=== PATIENT | male | born 1970 | race Caucasian/White ===

== ENCOUNTER 2019-12-19 06:14 | Day surgery (SDC) | payer OTHER ==
[2019-12-19] MEDS ORDERED: Lactated Ringers 1,000 ML IV SCH (06:30)
[2019-12-19] MEDS ORDERED: DIPRIVAN 200 MG/20 ML IV ONE ×2 (08:00→08:07)
--- NOTE | 2019-12-19 09:04 | OP ---
SURGERY DATE/TIME: 12/19/2019 0758 PREOPERATIVE DIAGNOSIS: Screening exam. POSTOPERATIVE DIAGNOSIS: Normal colon. Internal and external hemorrhoids are present. PROCEDURE: Colonoscopy. SURGEON: Dr. Sanchez. ANESTHESIA: MAC. Medications given by anesthesia department. HISTORY: The patient is a 49 year-old white male patient presenting now for screening colonoscopy. The patient was apprised of the risks of the procedure including the risk of perforation, phlebitis, untoward reaction to medication, bleeding and missed lesions. The patient verbalized his understanding and desired to have the procedure performed. DESCRIPTION OF PROCEDURE: The patient was given the medications by the anesthesia department. He had continuous pulse oximetry, ECG monitoring, intermittent blood pressure monitoring and tidal CO2 monitoring during the examination. He was placed in the left lateral decubitus position. A digital rectal examination was performed and revealed external and internal hemorrhoids. No other masses were felt and prostate was normal. The flexible Olympus pediatric colonoscope was used to intubate the rectum. A view of the colon was developed sequentially to the cecum. Upon insertion and withdrawal, including a retroflex view in the rectum, no other mucosal lesions were encountered. The scope was removed from the patient who tolerated the procedure well and was sent back to OP recovery in good condition. The prep was noted to be fair with some semisolid stool noted throughout the right colon and transverse colon.
[2019-12-19 09:08] VITALS: BP 122/64; PULSE 95; O2SAT 96
== END 2019-12-19 09:15 | disposition home or self-care (01) ==
LOC: SDC 06:14
PROVIDERS: ATTEND Family Medicine
DX: Z12.11 Encounter for screening for malignant neoplasm of colon (principal); K64.4 Residual hemorrhoidal skin tags; K64.8 Other hemorrhoids
CPT/HCPCS: J2704